=== PATIENT | male | born 1945 | race Caucasian/White ===

== ENCOUNTER → 2017-08-23 | Outpatient (CLI) | payer MEDICARE, BC ==
--- NOTE | 2017-08-23 19:10 | MR ---
EXAMINATION TYPE: MR knee RT wo con DATE OF EXAM: 08/23/2017 COMPARISON: NONE HISTORY: Pain TECHNIQUE: Multiplanar, multisequence imaging of the right knee is performed without IV contrast. FINDINGS: MEDIAL MENISCUS: There is a linear tear involving the posterior horn and body medial meniscus LATERAL MENISCUS: Intrasubstance signal posterior horn and anterior horn suggestive of myxoid degener ation. CRUCIATE LIGAMENTS: The anterior and posterior cruciate ligaments are intact and unremarkable. COLLATERAL LIGAMENTS: The medial collateral ligament and lateral collateral ligament complex are inta ct and unremarkable. EXTENSOR MECHANISM: Visualized quadriceps and patellar tendons are intact. EFFUSION: There is a small suprapatellar bursal fluid collection POPLITEAL CYST: There is a 0.8 x 0.5 x 2.4 cm popliteal fossa cyst TRICOMPARTMENT SPACES: There is narrowing of the joint spaces with marked thinning of the patellar ca rtilage and reactive marrow changes within the patella compatible with grade IV chondromalacia. Grade II chondromalacia involving the medial femoral articular cartilage. BONE MARROW SIGNAL: No marrow edema or contusion. OTHER: There is diffuse subcutaneous edema throughout the visualized lower extremity. IMPRESSION: 1. Diffuse subcutaneous edema. 2. 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 No free fragment. 3. Posterior horn and body medial meniscal tear. 4. 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 5. Popliteal cyst measuring 0.8 x 0.5 x 2.4 cm.
== END | disposition home or self-care (01) ==
LOC: RADMRIMAIN 18:16
PROVIDERS: ATTEND Family Medicine
DX: S83.241A Other tear of medial meniscus, current injury, right knee, initial encounter (principal); M17.11 Unilateral primary osteoarthritis, right knee; M22.41 Chondromalacia patellae, right knee; M71.21 Synovial cyst of popliteal space [Baker], right knee

== ENCOUNTER → 2018-08-12 | Outpatient (CLI) | payer MEDICARE, BC ==
--- NOTE | 2018-08-13 08:40 | CT ---
EXAMINATION TYPE: CT angio neck DATE OF EXAM: 08/12/2018 HISTORY: carotid stenosis COMPARISON: None CT DLP: 277.9 mGycm. Automated Exposure Control for Dose Reduction was Utilized. TECHNIQUE: CTA scan of the neck is performed with IV Contrast, patient injected with 65cc mL of Isov ue 370, axial images are obtained, coronal and sagittal reformatted images are reviewed. Three-D umu nstructed images are created on an independent workstation and reviewed. FINDINGS: Carotid/Vascular Structures: Right vertebral artery follows a tortuous course and is nearly midline i n the prevertebral space. There are couple of flow gaps present within the left common carotid artery on the reconstructed images. Source images are reviewed which appear unremarkable. No focal stenosis is evident. Some atheromatous plaquing is identified at the left internal carotid artery origin mild narrowing of less than 50%. Within the proximal left internal carotid. There is some mild narrowing due to atheromatous plaquing without significant stenosis. This is estimated at less than 50%. Other: There is a three-vessel arch. Vertebral arteries are codominant. There is opacification of the maxillary sinuses. Opacification through the right ethmoid air cells and anterior mid left ethmoid a ir cells is partially visualized. IMPRESSION: 1. Atheromatous plaquing greater on the left common carotid and proximal left internal carotid artery without significant flow-limiting stenosis.
== END ==
LOC: RADCTMAIN 15:58
PROVIDERS: ATTEND Surgery
DX: I65.22 Occlusion and stenosis of left carotid artery (principal)
CPT/HCPCS: 82565; 84520; 70498; 36415; Q9967

== ENCOUNTER → 2019-02-13 | Outpatient (CLI) | payer MEDICARE, BC ==
--- NOTE | 2019-02-13 11:29 | US ---
EXAMINATION TYPE: US duplex aorta DATE OF EXAM: 02/13/2019 COMPARISON: NONE CLINICAL HISTORY: I73.9 PVD. EXAM MEASUREMENTS: Abdominal Aorta: Proximal: 2.7 x 2.5 cm Mid: 2.4 x 2.3 cm Distal: 1.8 x 1.5 cm Bifurcation: 1.0 cm 0.9 cm Calcifications noted in Aorta. No evidence of AAA. IMPRESSION: Mild atherosclerosis of the abdominal aorta without evidence of aneurysmal dilatation in the visualized portions of the abdominal aorta.
== END | disposition home or self-care (01) ==
LOC: RADUSWWP 10:38
PROVIDERS: ATTEND Family Medicine
DX: I70.0 Atherosclerosis of aorta (principal)
CPT/HCPCS: 93922; 93979

== ENCOUNTER → 2019-04-07 | Outpatient (CLI) | payer MEDICARE, BC ==
--- NOTE | 2019-04-07 22:13 | MR ---
EXAMINATION TYPE: MR lumbar spine wo con DATE OF EXAM: 04/07/2019 COMPARISON: NONE HISTORY: LBP, spinal stenosis, history of bone marrow cancer per patient. TECHNIQUE: Multiplanar, multisequence imaging of the lumbar spine is performed without IV contrast. FINDINGS: Sagittal images of the lumbar spine show vertebral body heights and alignment to appear sat isfactory. There is multilevel disc desiccation with relative sparing of the upper lumbar levels. The re is mild multilevel disc space narrowing L2-L3 through the L4-L5 levels. The conus medullaris is n ormal in position and signal in the L1-L2 disc space level. The bone marrow signal intensity shows m arked low T1 and T2 signal less than skeletal muscle consistent with myeloproliferative disorder or b one marrow cancer reported by patient. Axial images show T12-L1 level to appear within normal limits. Axial images at the L1-L2 level show [id number]-rb-gahectry facet degenerative changes and ligamentum flavu m hypertrophy, bilateral neural foramina are patent. Axial images at L2-L3 level mild broad disc bulge. Axial images at L3-L4 levels with mild broad disc bulge and mild facet degenerative changes bilateral ly. There is mild effacement of anterior thecal sac. Bilateral neural foramina are patent. Axial images at L4-L5 level shows moderate facet degenerative changes and ligamentum flavum hypertrop hy. There is mild/moderate broad-based posterior disc protrusion. Bilateral neural foramina are paten t. Axial images at L5-S1 level shows mild to moderate facet degenerative changes bilaterally. Spinal can al is preserved. Bilateral neural foramina are patent. No suspicious incidental retroperitoneal findings are seen. IMPRESSION: Diffuse diminished low bone marrow signal consistent with myeloproliferative disorder. Mi ld multilevel degenerative changes mid to lower lumbar spine as detailed above. Spinal canal grossly preserved. No large disc herniation is evident.
== END | disposition home or self-care (01) ==
LOC: RADMRIMAIN 15:03
PROVIDERS: ATTEND Family Medicine
DX: M47.26 Other spondylosis with radiculopathy, lumbar region (principal); D47.1 Chronic myeloproliferative disease; Z85.528 Personal history of other malignant neoplasm of kidney
CPT/HCPCS: 72148

== ENCOUNTER → 2019-04-14 | Outpatient (CLI) | payer MEDICARE, BC ==
--- NOTE | 2019-04-14 14:45 | CT ---
EXAMINATION TYPE: CT abdomen pelvis wo con DATE OF EXAM: 04/14/2019 COMPARISON: CT of 2014 HISTORY: Unexplained weight loss, CKD CT DLP: 875 mGycm Automated exposure control for dose reduction was used. TECHNIQUE: Helical acquisition of images was performed from the lung bases through the pelvis. FINDINGS: LUNG BASES: Linear scarring and/or atelectasis in the lingula. Right hemidiaphragm elevation is chron ic. LIVER/GB: Hepatic parenchyma is diffusely hypoattenuated in comparison to that of the spleen, most co mmonly seen in hepatic steatosis. This finding limits evaluation for hepatic masses. No gross evidenc e of hepatic mass is seen. No intrahepatic biliary ductal dilatation. Gallbladder surgically absent. PANCREAS: No significant abnormality is seen. SPLEEN: There is interval development of splenomegaly with the spleen measuring 14.0 cm in long dimen yarelis, not seen on the prior. ADRENALS: No suspicious nodule or thickening. KIDNEYS: Right kidney is surgically absent. Prolapsed bowel extends into the right renal fossa. There are multiple lymph nodes just inferior to the surgical bed although there are only few more seen on today's examination than the exam of 2014. The lymph nodes that appear slightly larger and/or new are marked in the images.. None of these are enlarged by size criteria. Left kidney displays no evidence of hydronephrosis nor nephrolithiasis. FREE AIR: No free air is visualized ADENOPATHY: Lymph nodes inferior to the right nephrectomy bed are discussed in the renal section REPRODUCTIVE ORGANS: Prostate gland is heterogenous with central zone calcifications. URINARY BLADDER: No significant abnormality is seen. OSSEOUS STRUCTURES: Lucency of the left acetabulum is likely degenerative from arthropathy. Overall moderate arthropathy bilaterally. Minimal degenerative changes of the visualized thoracolumbar spine. BOWEL: There is subtle nonspecific fat stranding seen anterior to the left hepatic lobe and anterior to the stomach (body of the greater curvature) such as on image 48. This is nonspecific. Gastritis c ould be considered. Inferiorly patient motion obscures this finding such as on image 56. Multiple sig moid diverticula are seen without pericolonic fat stranding. No dilated large or small bowel. Very sm all hiatal hernia. OTHER: Little rings are fat filled bilaterally, right greater left. Extensive atherosclerosis is seen of the abdominal aorta and its branches. Intramuscular lipoma of posterior right thigh musculature a nd right lateral abdominal wall musculature. IMPRESSION: 1. NEW SPLENOMEGALY. 2. NUMEROUS NONENLARGED LYMPH NODES ARE SEEN INFERIOR TO THE RIGHT NEPHRECTOMY BED, MOST OF WHICH WER E PRESENT ON THE PRIOR 2013 ALTHOUGH FEW APPEAR NEW. GIVEN THEIR NONENLARGED SIZE FOLLOW-UP EXAM COUL D BE CONSIDERED IN 6 MONTHS OR IF THERE IS CLINICAL SUSPICION PET/CT COULD BE CONSIDERED. NO NEW SUSP ICIOUS OSSEOUS LESIONS.
== END | disposition home or self-care (01) ==
LOC: RADCTMAIN 13:47
PROVIDERS: ATTEND Family Medicine
DX: R16.1 Splenomegaly, not elsewhere classified (principal); Z90.5 Acquired absence of kidney; R63.4 Abnormal weight loss; N18.9 Chronic kidney disease, unspecified
CPT/HCPCS: 74176